=== PATIENT | female | born 1990 | race Caucasian/White ===

== ENCOUNTER 2018-08-30 15:54 | Outpatient (CLI) | payer OTHER ==
[2018-08-30] MEDS ORDERED: PROAIR RESPICL90 MCG PO (18:30)
== END 2018-08-31 10:00 | disposition left against medical advice (07) ==
LOC: OBS/DEL 15:54
DX: O60.03 Preterm labor without delivery, third trimester (principal); Z34.83 Encounter for supervision of other normal pregnancy, third trimester

== ENCOUNTER 2018-09-27 17:04 | Inpatient (IN) | payer OTHER ==
[~2018-09-27] VITALS: Ht 154.9 cm; Wt 2.3 kg
[~2018-09-27 17:04] MED LIST: PROAIR RESPICL90 MCG PO
[2018-09-27] MEDS ORDERED: ZOFRAN4 MG PO (17:45)
[2018-09-27] MEDS ORDERED: PEPCID20 MG PO (17:46)
[2018-09-27] MEDS ORDERED: PROAIR HFA8.5 GM IH (17:46)
[2018-10-02] MEDS ORDERED: ACETAMINOPHEN500 M1 PO (11:46)
[2018-10-02] MEDS ORDERED: IBUPROFEN800 MG PO (11:47)
== END 2018-10-02 11:51 | DRG 785 ==
LOC: OB/GYN 09-29 04:30 → O/R 09-29 04:30 → OB/GYN 09-29 07:00
PROVIDERS: Obstetrics & Gynecology
PROC: 0UL70ZZ Occlusion of Bilateral Fallopian Tubes, Open Approach (ICD-10-PCS; 2018-09-29)
PROC: 4A1HXCZ Monitoring of Products of Conception, Cardiac Rate, External Approach (ICD-10-PCS; 2018-09-29)
PROC: 10D00Z1 Extraction of Products of Conception, Low, Open Approach (ICD-10-PCS; principal; 2018-09-29 07:00)
DX: O34.211 Maternal care for low transverse scar from previous cesarean delivery (principal); O75.82 Onset (spontaneous) of labor after 37 completed weeks of gestation but before 39 completed weeks gestation, with delivery by (planned) cesarean section; Z3A.37 37 weeks gestation of pregnancy; Z37.0 Single live birth; Z30.2 Encounter for sterilization